=== PATIENT | female | born 1980 | race Hispanic/Latino ===

== ENCOUNTER 2018-02-02 09:09 | Outpatient (CLI) | payer OTHER | END 2018-02-02 09:10 | disposition home or self-care (01) | LOC: BICMAMMO 09:09 | PROVIDERS: ATTEND Surgery | DX: Z12.31 Encounter for screening mammogram for malignant neoplasm of breast (principal); Z80.3 Family history of malignant neoplasm of breast | CPT/HCPCS: 77063; 77067 ==

== ENCOUNTER 2019-02-08 08:43 | Outpatient (CLI) | payer OTHER ==
--- NOTE | 2019-02-08 13:47 | MMO ---
Bilateral MAMMO Bilat Screen [facility]. CLINICAL HISTORY: Patient is 39 years old and is seen for screening. The patient has the following family history of breast cancer: mother, at age 45. The patient has no personal history of cancer. VIEWS: The views performed were: bilateral craniocaudal with tomosynthesis; bilateral mediolateral oblique with tomosynthesis; and bilateral exaggerated craniocaudal. FILMS COMPARED: The present examination has been compared to a prior imaging study performed at [facility] on 02/02/2018. MAMMOGRAM FINDINGS: The breasts are heterogeneously dense, which could obscure a lesion on mammography. There are no suspicious masses, suspicious calcifications, or new areas of architectural distortion. IMPRESSION: THERE IS NO MAMMOGRAPHIC EVIDENCE OF MALIGNANCY. A ROUTINE FOLLOW-UP MAMMOGRAM IN 1 YEAR IS RECOMMENDED. THE RESULTS OF THIS EXAM WERE SENT TO THE PATIENT. ACR BI-RADS Category 1 - Negative MAMMOGRAPHY NOTE: 1. A negative mammogram report should not delay a biopsy if a dominant of clinically suspicious mass is present. 2. Approximately 10% to 15% of breast cancers are not detected by mammography. 3. Adenosis and dense breasts may obscure an underlying neoplasm.
== END 2019-02-08 08:44 | disposition home or self-care (01) ==
LOC: BICMAMMO 08:43
PROVIDERS: ATTEND Internal Medicine
DX: Z12.31 Encounter for screening mammogram for malignant neoplasm of breast (principal); Z80.3 Family history of malignant neoplasm of breast
CPT/HCPCS: 77063; 77067

== ENCOUNTER 2019-11-08 08:17 | Outpatient (CLI) | payer OTHER ==
--- NOTE | 2019-11-08 08:46 | RAD ---
EXAM: XR Ribs Lt>=2 View W/PA CXR PROVIDED CLINICAL HISTORY: Left-sided rib pain. COMPARISON: None FINDINGS: Cardiac silhouette and pulmonary vasculature are within normal limits. The lungs are clear. No left-s ided rib fracture is seen. There is no pneumothorax or pleural effusion identified. IMPRESSION: 1. No acute cardiopulmonary process. 2. No left-sided rib fractures seen.
--- NOTE | 2019-11-08 08:55 | RAD ---
EXAM: 3 views of the thoracic spine HISTORY: Thoracic spine pain COMPARISON: None FINDINGS: 3 views of the thoracic spine shows normal height and alignment of the vertebral bodies and intervertebral discs without fracture or subluxation. Mild scoliotic curvature the spine is seen. No significant degenerative changes are seen. IMPRESSION: Minimal scoliosis without acute osseous abnormality.
== END 2019-11-08 08:18 | disposition home or self-care (01) ==
LOC: BICRAD 08:17
PROVIDERS: ATTEND Internal Medicine
DX: M54.6 Pain in thoracic spine (principal); R07.81 Pleurodynia; M41.9 Scoliosis, unspecified
CPT/HCPCS: 72072

== ENCOUNTER 2020-02-29 15:25 | Outpatient (CLI) | payer OTHER ==
--- NOTE | 2020-02-29 16:04 | MMO ---
Bilateral MAMMO Bilat Screen [facility]. CLINICAL HISTORY: Patient is 40 years old and is seen for screening. The patient has the following family history of breast cancer: mother, at age 45. The patient has no personal history of cancer. VIEWS: The views performed were: bilateral craniocaudal with tomosynthesis and bilateral mediolateral oblique with tomosynthesis. FILMS COMPARED: The present examination has been compared to prior imaging studies performed at [facility] on 02/02/2018 and 02/08/2019. This study has been interpreted with the assistance of computer-aided detection. MAMMOGRAM FINDINGS: The breasts are heterogeneously dense, which could obscure a lesion on mammography. There are no suspicious masses, suspicious calcifications, or new areas of architectural distortion. IMPRESSION: THERE IS NO MAMMOGRAPHIC EVIDENCE OF MALIGNANCY. A ROUTINE FOLLOW-UP MAMMOGRAM IN 1 YEAR IS RECOMMENDED. THE RESULTS OF THIS EXAM WERE SENT TO THE PATIENT. ACR BI-RADS Category 1 - Negative MAMMOGRAPHY NOTE: 1. A negative mammogram report should not delay a biopsy if a dominant of clinically suspicious mass is present. 2. Approximately 10% to 15% of breast cancers are not detected by mammography. 3. Adenosis and dense breasts may obscure an underlying neoplasm. Reported by: KRISTA CONWAY MD Electonically Signed: [id number]
== END 2020-02-29 15:26 | disposition home or self-care (01) ==
LOC: BICMAMMO 15:25
PROVIDERS: ATTEND Obstetrics & Gynecology
DX: Z12.31 Encounter for screening mammogram for malignant neoplasm of breast (principal); Z80.3 Family history of malignant neoplasm of breast
CPT/HCPCS: 77063; 77067

== ENCOUNTER 2021-03-03 08:05 | Outpatient (CLI) | payer OTHER | END 2021-03-03 08:06 | disposition home or self-care (01) | LOC: BICMAMMO 08:05 | PROVIDERS: ATTEND Obstetrics & Gynecology | DX: Z12.31 Encounter for screening mammogram for malignant neoplasm of breast (principal); Z80.3 Family history of malignant neoplasm of breast | CPT/HCPCS: 77063; 77067 ==

== ENCOUNTER 2022-03-04 10:07 | Outpatient (CLI) | payer BC | END 2022-03-04 10:08 | disposition home or self-care (01) | LOC: BICMAMMO 10:07 | PROVIDERS: ATTEND Obstetrics & Gynecology | DX: Z12.31 Encounter for screening mammogram for malignant neoplasm of breast (principal); Z80.3 Family history of malignant neoplasm of breast | CPT/HCPCS: 77063; 77067 ==

== ENCOUNTER 2022-11-18 07:32 | Outpatient (CLI) | payer BC | END 2022-11-18 07:33 | disposition home or self-care (01) | LOC: BICCT 07:32 | PROVIDERS: ATTEND Surgery | DX: R19.00 Intra-abdominal and pelvic swelling, mass and lump, unspecified site (principal); R20.0 Anesthesia of skin; K76.0 Fatty (change of) liver, not elsewhere classified | CPT/HCPCS: 74177 ==

== ENCOUNTER 2025-05-02 09:52 | Outpatient (CLI) | payer BC | END 2025-05-02 09:53 | disposition home or self-care (01) | LOC: BICMAMMO 09:52 | PROVIDERS: ATTEND Internal Medicine | DX: Z12.31 Encounter for screening mammogram for malignant neoplasm of breast (principal); Z80.3 Family history of malignant neoplasm of breast | CPT/HCPCS: 77063; 77067 ==